=== PATIENT | male | born 1985 | race Caucasian/White ===

== ENCOUNTER 2018-03-07 11:15 | Emergency (ER) | payer MEDICAID ==
[2018-03-07] MEDS: LORAZEPAM 1 MG TAB PO (12:35)
== END 2018-03-07 12:53 | disposition home or self-care (01) ==
LOC: FTE 11:15
DX: F41.9 Anxiety disorder, unspecified (principal)
CPT/HCPCS: 99283; Z7502

== ENCOUNTER 2018-03-14 15:45 | Emergency (ER) | payer MEDICAID | END 2018-03-14 17:28 | disposition home or self-care (01) | LOC: FTE 15:45 | DX: K21.9 Gastro-esophageal reflux disease without esophagitis (principal) | CPT/HCPCS: 99282; Z7502 ==